=== PATIENT | female | born 1965 | race Caucasian/White ===

== ENCOUNTER 2019-12-20 12:04 | Emergency (ER) | payer BC ==
[~2019-12-20] VITALS: Ht 152.4 cm; Wt 59.0 kg
[2019-12-20 12:38] VITALS: BP_SYST 125
[2019-12-20] MEDS ORDERED: NACL 0.9% 1,000 ML IV ONE (12:42)
[2019-12-20] MEDS ORDERED: EPINEPHrine JECT 0.1 MG/ML SYR IVP ONE (12:45)
[2019-12-20] MEDS ORDERED: FAMOTIDINE PF 20 MG/2 ML VIAL IVP ONE (12:45)
[2019-12-20] MEDS ORDERED: methylPREDNISolone SOD SUCC/PF 62.5 MG/ML VIAL IVP ONE (12:45)
[2019-12-20] MEDS ORDERED: DIPHENHYDRAMINE INJ 50 MG/ML VIAL IVP ONE (12:45)
[2019-12-20 13:03] LABS: BASOPHILS % (AUTO) 0.8 % (0.0-2.0); EOSINOPHILS # (AUTO) 0.2 K/uL (0.0-0.4); HEMATOCRIT 43.3 % (36-48); HEMOGLOBIN 14.2 g/dL (12.0-16.0); LYMPHOCYTES # (AUTO) 1.2 K/uL (1.0-5.5); LYMPHOCYTES % (AUTO) 23.2 % (20.5-51.5); MEAN CORPUSCULAR HEMOGLOBIN 28 pg (27-31); MEAN CORPUSCULAR HGB CONC 33 % (32-36); MEAN CORPUSCULAR VOLUME 84 fL (79.0-98.0); MONOCYTES # (AUTO) 0.2 K/uL (0.0-1.0); MONOCYTES % (AUTO) 4.7 % (1.7-9.3); NEUTROPHILS # (AUTO) 3.6 K/uL (1.8-7.7); NEUTROPHILS % (AUTO) 68.3 % (40.0-70.0); PLATELET COUNT (AUTO) 219 K/uL (130-430); RED BLOOD CELL COUNT(AUTO) 5.13 MIL/uL (4.2-6.2); WHITE BLOOD COUNT (AUTO) 5.3 K/uL (4.8-10.8)
[2019-12-20 13:13] LABS: CALCIUM 8.3 mg/dL (8.4-11.0); CREATININE 1.16 mg/dL (0.55-1.30); POTASSIUM 3.8 mmol/L (3.5-5.1)
[2019-12-20] MEDS ORDERED: LEVO125T PO (13:16)
[2019-12-20 13:24] LABS: ALBUMIN 3.8 g/dL (3.4-4.8); TOTAL BILIRUBIN 0.3 mg/dL (0.0-1.0)
[2019-12-20 14:52] VITALS: BP_SYST 122
== END 2019-12-20 14:52 | disposition home or self-care (01) ==
LOC: SED 12:04
DX: L25.9 Unspecified contact dermatitis, unspecified cause (principal); L50.9 Urticaria, unspecified; R21 Rash and other nonspecific skin eruption; E07.9 Disorder of thyroid, unspecified
CPT/HCPCS: 36415; 80053; 85025; 96374; 96375; 99283; J0171; J1200; J2930; J3490; J7030

== ENCOUNTER 2021-03-12 16:25 | Emergency (ER) | payer BC ==
[~2021-03-12] VITALS: Ht 154.9 cm; Wt 59.0 kg
[~2021-03-12 16:25] MED LIST: LEVO125T PO
[2021-03-12 16:32] VITALS: BP_SYST 124
[2021-03-12] MEDS ORDERED: TETRACAINE HCL/PF 0.5% OPHTHALMIC DROPS 4 ML OP ONE (18:45)
[2021-03-12] MEDS ORDERED: FLUORESCEIN SODIUM 1 MG OPHTHALMIC STRIP OP ONE (18:45)
[2021-03-12] MEDS ORDERED: OLOP5DRO15 EACH EYE (19:42)
[2021-03-12] MEDS ORDERED: SULF5DRO EACH EYE (19:42)
[2021-03-12 19:53] VITALS: BP_SYST 116
== END 2021-03-12 19:53 | disposition home or self-care (01) ==
LOC: SED 16:25
DX: H10.13 Acute atopic conjunctivitis, bilateral (principal); E07.9 Disorder of thyroid, unspecified; Z90.710 Acquired absence of both cervix and uterus
CPT/HCPCS: 99283

== ENCOUNTER 2022-04-03 08:17 | Emergency (ER) | payer OTHER, BC ==
[~2022-04-03] VITALS: Ht 157.5 cm; Wt 61.2 kg
[~2022-04-03 08:17] MED LIST changes: +OLOP5DRO27 EACH EYE; +SULF5DRO EACH EYE
[2022-04-03 08:20] VITALS: BP_SYST 137
[2022-04-03] MEDS ORDERED: PRED50TA PO (08:38)
[2022-04-03] MEDS ORDERED: DEXAMETHASONE SOD PHOSPHATE 10 MG/ML VIAL IM ONE (08:45)
[2022-04-03] MEDS ORDERED: DIPHENHYDRAMINE INJ 50 MG/ML VIAL IM ONE (08:45)
== END 2022-04-03 09:40 | disposition home or self-care (01) ==
LOC: SED 08:17
DX: L23.9 Allergic contact dermatitis, unspecified cause (principal)
CPT/HCPCS: 96372; 99284; J1100; J1200